=== PATIENT | female | born 1930 | race Caucasian/White ===

== ENCOUNTER → 2017-02-24 | Outpatient (CLI) | payer OTHER, MEDICARE ==
[~2017-02-24] VITALS: Ht 170.2 cm; Wt 75.8 kg
[~2017-02-24] MED LIST: APAP500 PO; COUMADIN 5 MG TA5 M1 PO; IBUPROFEN 400400 M2 PO; LEVOTHYROXIN0.088 MG PO; PROPRANOLOL 1010 MG PO
--- NOTE | ~2017-02-24 | HPC ---
[facility] [place] [address] PAIN MANAGEMENT CONSULTATION Name: SAYRA ANDREWS Room #: REG Rafia Maria M#: [id number] Admission: 02/24/17 Attend Phys: Ti Barr MD Discharge: Date of : 32 Report #: [id number] THIS REPORT FOR: //name// CC: RUBENS Barr DATE OF SERVICE: 02/24/2017 Followup visit for bilateral knee pain. The patient is in the pain clinic today for treatment of her knees. She has severe pain in both knees with osteoarthritis. She responded nicely to injections performed in September 2016 and is hopeful that we can provide similar injections for her today. She is not a surgical candidate. Pain today is bilateral knee scored as an 8/10 when weightbearing, if she is sitting her pain is quite good. She assessed her relief over the 3 months at about 50%, which is reasonable for repeat injection. MEDICATIONS: She remains on Coumadin, ibuprofen, acetaminophen and Inderal. ALLERGIES: None. PHYSICAL EXAMINATION: She is a nusrat 86-year-old pleasant, alert and oriented. She is able to move from a sitting to standing position, walks with antalgic features, complaining of pain in her knees. Tenderness around the knees is noted. There is no effusion appreciated today. IMPRESSION: Bilateral osteoarthritis with varus deformity of the right knee. No palpable effusion today, which was noticed in September. PROCEDURE: Bilateral knee injection. The patient was taken to fluoroscopic suite to perform the injections. She was placed supine. Skin was prepped with ChloraPrep broadly. Lateral approach was performed, first to the right knee. I advanced a 20-gauge needle into the knee joint on the first attempt gently advancing it subpatellar. I injected 1 mL of Omnipaque to demonstrate good spread within the joint and then injected 6 mL of 0.25% bupivacaine mixed with 40 mg of triamcinolone. Needle was removed. We then moved to the left knee. A similar procedure was performed using exactly technique. No fluid was aspirated from either joint, but I was able to confirm that we were intraarticular by injecting dye to demonstrate an arthrogram. No medications were ordered. She was better by the time she reached recovery room from the local anesthetic affect and we are hopeful that she will get an extended relief. [address] [address] PAIN MANAGEMENT CONSULTATION Name: SAYRA ANDREWS Room #: REG MURIEL Franz#: [id number] Admission: 02/24/17 Attend Phys: Ti Barr MD Discharge: Date of : 32 Report #: [id number] Follow up as needed. <ELECTRONICALLY SIGNED> By: Ti Barr MD 02/28/17 1723 1623 1720 Ti Barr MD /nt
[2017-02-24 13:05] VITALS: BP 148/70
== END | disposition home or self-care (01) ==
LOC: PAIN 11:04
DX: M17.0 Bilateral primary osteoarthritis of knee (principal); M21.161 Varus deformity, not elsewhere classified, right knee; Z88.8 Allergy status to other drugs, medicaments and biological substances; Z79.01 Long term (current) use of anticoagulants; Z79.899 Other long term (current) drug therapy; Z98.890 Other specified postprocedural states

== ENCOUNTER → 2017-09-12 | Outpatient (CLI) | payer OTHER, MEDICARE ==
[~2017-09-12] VITALS: Ht 170.2 cm; Wt 75.8 kg
--- NOTE | ~2017-09-12 | HPC ---
[facility] [place] [address] PAIN MANAGEMENT CONSULTATION Name: SAYRA ANDREWS Room #: REG MURIEL Maria M#: [id number] Admission: 09/12/17 Attend Phys: Ti Barr MD Discharge: Date of : 32 Report #: [id number] THIS REPORT FOR: //name// CC: Jack Barr DATE OF SERVICE: 09/12/2017 Followup visit for osteoarthritis, bilateral knees. The patient is here today for bilateral knee injections. She was last treated in June. She receives response from these injections each time they have been provided. She has had no complications or side effects. Last year, we provided with three injections and this will be her first injection in 2018. She describes her pain today as a 3/10, worse with standing and weightbearing. She does have a history of osteoarthritis. Her BMI is 26.2 and she is bright, sharp and alert. She is under treatment by Dr. 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 Blood pressure is 145/85, heart rate 70, respirations 14 and O2 sat 99. She has fallen in the last 3 months will be considered; therefore, a fall risk. This fall was not related to dizziness or lightheadedness, but more to a weakness and giving out of her legs. Her functional assessment tool shows a score of 16/70, which shows that she has adapted pretty well to her pain and it does not seem to affect her day-to-day activities. IMPRESSION: Osteoarthritis, bilateral knees. PROCEDURE: Bilateral knee injections with fluoroscopy. She was taken to fluoroscopic suite, placed prone, skin prepped with ChloraPrep first on the right. A 25-gauge needle was gently advanced into the joint space using a medial approach. After negative aspiration, I injected 1 mL of Omnipaque demonstrated on arthrogram. I then injected 4 mL of 0.5% bupivacaine mixed with 40 mg of triamcinolone. She tolerated the procedure well. We then prepped the left side and using the same approach anesthetized the skin and advanced the needle into the joint space. After negative aspiration, I injected once again 4 mL of 0.5% bupivacaine mixed with 40 mg of triamcinolone. She tolerated the procedure well. She was observed in the recovery room for a short time and discharged with good improvement. Follow up as needed. <ELECTRONICALLY SIGNED> By: Ti Barr MD 09/28/17 1640 1545 0454 Ti Barr MD /nt
[2017-09-12 12:45] VITALS: BP 145/85
== END | disposition home or self-care (01) ==
LOC: PAIN 07:36
DX: M17.0 Bilateral primary osteoarthritis of knee (principal)

== ENCOUNTER → 2018-01-02 | Outpatient (CLI) | payer OTHER, MEDICARE ==
[~2018-01-02] VITALS: Ht 170.2 cm; Wt 75.7 kg
--- NOTE | ~2018-01-02 | HPC ---
[facility] [place] [address] PAIN MANAGEMENT CONSULTATION Name: SAYRA ANDREWS Room #: REG MURIEL Maria M#: [id number] Admission: 01/02/18 Attend Phys: Ti Barr MD Discharge: Date of : 32 Report #: [id number] THIS REPORT FOR: //name// CC: Jack Barr DATE OF SERVICE: 01/02/2018 SUBJECTIVE: Followup visit for osteoarthritis, bilateral knees. The patient is here today for bilateral knee injections of triamcinolone. She has responded nicely to these injections and has had treatments about 3 times a year. I performed 3 injections in 2017. This will be her second set of injections. She reports that for a couple of months, she does exceptionally well with the pain reduced from her current score of 9 to almost 0. It is always worse with walking. She is comfortable with sitting. She knows that she could potentially pursue a surgical option for this, but at the age of 87, on Coumadin, she is reluctant to pursue that course. As long as this is helpful, she is going to continue getting intermittent injections. MEDICATIONS: Reviewed include acetaminophen and ibuprofen and Coumadin. I talked about the GI risk with ibuprofen and warfarin combination. It will be safer for actually to take a mild opioid. She is on levothyroxine and propranolol. ALLERGIES: None. PAST MEDICAL HISTORY: Significant for pulmonary emboli, necessitating the warfarin. 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 PHYSICAL EXAMINATION: VITAL SIGNS: Blood pressure 148/70, heart rate 78, respirations 16, 5 feet 7 inches, 167 pounds, BMI is 26. MUSCULOSKELETAL: She has bilateral localized tenderness. Right is worse than left. There is lateral tenderness noted in the right knee and may be a small effusion noted. There is no crepitus with flexion or extension. Standing, weightbearing causes pain and she has antalgic gait related to both knee causing pain that radiates down into the anterior part of her lower leg. She denies any back or leg pain. [facility] [address] [place] [address] PAIN MANAGEMENT CONSULTATION Name: SAYRA ANDREWS [id number] Admission: 01/02/18 Attend Phys: Ti Barr MD Discharge: Date of : 32 Report #: [id number] IMPRESSION: Osteoarthritis, bilateral knees. PLAN: Bilateral knee injections under fluoroscopic guidance. She was placed in the supine position. Skin prepped with ChloraPrep. I gently advanced a 25-gauge needle into the left knee joint with fluoroscopic guidance. I did not use omnipaque. Today, I have used it in the past. Position looked excellent. After negative aspiration, I gently injected without restriction. A total of 4 mL of 0.5% bupivacaine mixed with 40 mg of triamcinolone. The skin was then prepped on the right and similar injection was performed with the same technique. She tolerated the procedures well. There were no complications. She was taken to recovery room and observed for a short time and discharged with improvement. Pain score noted as she walked out of the recovery room at 0. Followup visit planned for repeat injections in the future. <ELECTRONICALLY SIGNED> By: Ti Barr MD 01/30/18 1230 1309 2121 Ti Barr MD /nt
[2018-01-02 10:26] VITALS: BP 154/74
== END | disposition home or self-care (01) ==
LOC: PAIN 06:53
DX: M17.0 Bilateral primary osteoarthritis of knee (principal); G89.29 Other chronic pain; Z86.711 Personal history of pulmonary embolism; Z79.01 Long term (current) use of anticoagulants; Z79.899 Other long term (current) drug therapy; Z98.890 Other specified postprocedural states

== ENCOUNTER → 2018-03-27 | Outpatient (CLI) | payer OTHER, MEDICARE ==
[~2018-03-27] VITALS: Ht 170.2 cm; Wt 75.7 kg
--- NOTE | ~2018-03-27 | HPC ---
[facility] [place] [address] PAIN MANAGEMENT CONSULTATION Name: SAYRA ANDREWS Room #: REG MURIEL Chandler.#: [id number] Admission: 03/27/18 Attend Phys: Ti Barr MD Discharge: Date of : 32 Report #: [id number] THIS REPORT FOR: //name// CC: Jack Barr DATE OF SERVICE: 03/27/2018 Followup visit for bilateral osteoarthritis of the knee. HISTORY OF PRESENT ILLNESS: The patient is here today for bilateral injections. She has responded nicely to these injections with sustained relief over 2-3 months in the past. She is on Coumadin. We have allowed her to remain on it. I feel it safer than taking her off for this peripheral injection performed with a 25-gauge needle. She reports that her pain intensity is up at 6-7/10, chronic and aching, worse with weightbearing. MEDICATIONS: Include acetaminophen, ibuprofen, warfarin, Inderal and levothyroxine. Once again, she was warned about the risk of taking ibuprofen with Coumadin. PQRS REVIEW: She is pleasant, alert and oriented, without signs of overmedication. She denies use of tobacco or alcohol. She is not a fall risk. She is under treatment for hypertension and is on Coumadin. She takes no opioid medication. Her blood pressure 150/71, heart rate 64, respirations 20, O2 sat 96. She is 5 feet 7 inches with a BMI of 26. She has tenderness of both knees with slight effusion noted on the right. Drawer test is negative. She has an antalgic gait, complaining of pain that radiates into the anterior lower leg bilaterally with tenderness along the tibia. IMPRESSION: Osteoarthritis of the knees bilaterally. She has responded nicely to injections in the past. PROCEDURE: Bilateral knee injection under fluoroscopic guidance. She was taken to fluoroscopic suite, placed prone, skin prepped with ChloraPrep. Skin anesthetized first on the right. A 25-gauge needle was gently advanced into the knee joint under fluoroscopic guidance. I used 0.25 mL of Omnipaque. Good spread of dye was observed within the joint space, it was followed by 3 mL of 0.5% bupivacaine mixed with 40 mg triamcinolone. The C-arm was then moved to the opposite side and the second knee was injected using the same technique. [address] [address] PAIN MANAGEMENT CONSULTATION Name: SAYRA ANDREWS Room #: REG CLI [facility]#: [id number] Admission: 03/27/18 Attend Phys: Ti Barr MD Discharge: Date of : 32 Report #: [id number] She tolerated the procedure well. She was observed for a short time and discharged with a pain score of 0. Followup as needed. By: [id number] Ti Barr MD /franchesca
[2018-03-27 10:46] VITALS: BP 150/71
== END | disposition home or self-care (01) ==
LOC: PAIN 07:00
DX: M17.0 Bilateral primary osteoarthritis of knee (principal); G89.29 Other chronic pain; I10 Essential (primary) hypertension; Z98.890 Other specified postprocedural states; Z79.01 Long term (current) use of anticoagulants; Z79.899 Other long term (current) drug therapy; Z88.6 Allergy status to analgesic agent; Z88.8 Allergy status to other drugs, medicaments and biological substances

== ENCOUNTER → 2018-06-26 | Outpatient (CLI) | payer OTHER, MEDICARE ==
[~2018-06-26] VITALS: Ht 170.2 cm; Wt 75.7 kg
--- NOTE | ~2018-06-26 | HPC ---
[facility] [place] [address] [place] [address] PAIN MANAGEMENT CONSULTATION Name: SAYRA ANDREWS Room #: REG MURIEL Maria M#: [id number] Admission: 06/26/18 Attend Phys: Ti Barr MD Discharge: Date of : 32 Report #: [id number] THIS REPORT FOR: //name// CC: Jack Barr DATE OF SERVICE: 06/26/2018 Followup visit for osteoarthritis. The patient has bilateral knee pain and has responded nicely to intermittent cortisone injections. The pain today is worsening and is so severe at night that it affects her sleep. 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 The knee pain is severe when she is walking as well. After injection, she gets an easy 2 months, sometimes 3 months of pain relief. It has been 3 months since we last injected. MEDICATIONS: Reviewed and reconciled. She is on Coumadin. She takes aspirin for pain. She is not on an opioid agreement. She does not drink alcohol. She is a fall risk and was cautioned. She does not use a support device. It is her knees that cause problems that can potentially give out on her. She denies use of tobacco. PHYSICAL EXAMINATION: VITAL SIGNS: Blood pressure 153/78, heart rate 79 and respirations 18. BMI is 26.1. GENERAL: She is bright and alert. EXTREMITIES: She has tenderness bilaterally of the knees. She has some crepitus with extension past 90 degrees. There is no palpable effusion. IMPRESSION: Osteoarthritis, bilateral knees. PROCEDURE: Bilateral knee injection under fluoroscopic guidance. DESCRIPTION OF PROCEDURE: She was taken to the fluoroscopic suite and placed prone. Skin prepped with ChloraPrep. Skin anesthetized first on the right. Using a lateral approach, the needle was advanced gently into the joint space and 0.25 mL of Omnipaque was enough to inject and demonstrate an arthrogram. It was followed by 4 mL of 0.5% lidocaine and 40 mg of triamcinolone. Needle was removed. Same procedure was performed on the left. She tolerated the injections well. There were no complications. She was given no prescriptions. She will continue [address] [address] PAIN MANAGEMENT CONSULTATION Name: SAYRA ANDREWS Cole Room #: REG [facility].#: [id number] Admission: 06/26/18 Attend Phys: Ti Barr MD Discharge: Date of : 32 Report #: [id number] on acetaminophen with occasional use of ibuprofen 400 mg. Precautions were provided regarding the side effects of the nonsteroidal anti-inflammatory drug. By: [id number] Ti Barr MD /nt
[2018-06-26 09:38] VITALS: BP 153/78
== END | disposition home or self-care (01) ==
LOC: PAIN 00:15
DX: M17.0 Bilateral primary osteoarthritis of knee (principal); Z79.01 Long term (current) use of anticoagulants; Z79.82 Long term (current) use of aspirin; Z79.899 Other long term (current) drug therapy; Z88.8 Allergy status to other drugs, medicaments and biological substances

== ENCOUNTER → 2018-09-18 | Outpatient (CLI) | payer OTHER, MEDICARE ==
[~2018-09-18] VITALS: Ht 170.2 cm; Wt 75.8 kg
[2018-09-18 13:30] VITALS: BP 155/84
--- NOTE | 2018-09-18 13:49 | NUR ---
Pain Clinic Assessment: 1. History of Osteoarthritis: NO History of Rheumatoid Arthritis: NO 2. Height: 5 ft. 7 in. 170.2 cm. Weight: 167.2 lb. oz. 75.841 kg. Patient's BMI: 26.2 3. Vital Signs: BP: 155/84 Pulse: 70 Resp: 16 Temp: 02 Sat: 99 ECG Mon: 4. Pain Intensity: 7 NOC 6 AVG 5. Fall Risk: Dizziness: N Needs help standing or walking: N Fallen in the last 3 months: N Fall risk comments: 6. Patient on Blood Thinner: Warfarin (Coumadin) 7. History of Hypertension: Y 8. Opioid Therapy greater than 6 weeks: N Opiate Contract Signed: 9. Risk Assessment Tool Provided: LOW RISK 0/3 10. Functional Assessment Tool: 11. Recreational Drug Use: Never Drug Type: Tobacco Use: Never Smoker Tobacco Type: Amount or Packs/day: How Many Years: Alcohol Use: Yes Frequency: Quant:
--- NOTE | 2018-10-02 07:40 | HPC ---
[facility] [place] [address] [address] PAIN MANAGEMENT CONSULTATION Name: SAYRA ANDREWS Room #: REG MURIEL Maria M#: [id number] Admission: 09/18/18 ������������������ Attend Phys: Ti Barr MD Discharge: ������������������ Date of : 32 Report #: [id number] THIS REPORT FOR: //name// CC: Jack Barr DATE OF SERVICE: 09/18/2018 Followup visit for osteoarthritis of the knees. The patient is here today, would like another injection in each knee. I last gave her injections in June and they were helpful for several weeks providing significant pain relief. She complains of pain bilaterally in the knees. Pain is severe with standing, weightbearing, but it is worse at night. She had a lot of relief with the last injections, particularly at night that helped her sleep. She needs to sleep to help be bright and sharp during the day to help care for her who has advancing early onset dementia. He also is up at night. PHYSICAL EXAMINATION: She is 5 feet 7 inches, 167 pounds for a BMI of 26.2. Her blood pressure is 155/84, heart rate 70. Pain score of 7. She moves easily from a sitting to standing position and is not a fall risk. She has tenderness with no effusion noted on either knee. She has crepitus with flexion. The knee is stable. PAST MEDICAL HISTORY: She is on Coumadin and under treatment by Dr. Broussard for hypertension. She does not take opioid medications from our clinic. IMPRESSION: Bilateral osteoarthritis involving the knees. PROCEDURE: Bilateral knee injection with bupivacaine and triamcinolone. DESCRIPTION OF PROCEDURE: She was taken to fluoroscopic suite and placed in supine position. Skin was prepped with ChloraPrep. We began first on the right. Using lateral approach, I gently advanced a 25-gauge needle into the knee joint and quarter omnipaque was injected to demonstrate an arthrogram. I then injected 4 mL of 0.5% bupivacaine mixed with 40 mg of triamcinolone. We then injected the left knee using a left paramedial approach. Skin anesthetized and a 25-gauge needle advanced in the knee joint. Omnipaque demonstrated once again an arthrogram. I injected 4 mL of 0.5% bupivacaine mixed with 40 mg of triamcinolone on the right. She tolerated the injections [address] [address] PAIN MANAGEMENT CONSULTATION Name: SAYRA ANDREWS Room #: REG CL Maria M#: [id number] Admission: 09/18/18 ������������������ Attend Phys: Ti Barr MD Discharge: ������������������ Date of : 32 Report #: [id number] well. She was observed for short time and discharged with a pain score 0. Follow up as needed. ��������������������������������������������� <ELECTRONICALLY SIGNED> ���������������������������������������� By: Ti Barr MD ��������������������������������������������� 10/02/18 0740 1547 0019 Ti Barr MD /franchesca
== END | disposition home or self-care (01) ==
LOC: PAIN 07:12
DX: M17.0 Bilateral primary osteoarthritis of knee (principal); G89.29 Other chronic pain; I10 Essential (primary) hypertension; Z88.8 Allergy status to other drugs, medicaments and biological substances; Z79.01 Long term (current) use of anticoagulants; Z79.899 Other long term (current) drug therapy; Z98.890 Other specified postprocedural states

== ENCOUNTER → 2018-12-11 | Outpatient (CLI) | payer OTHER, MEDICARE ==
[~2018-12-11] VITALS: Ht 170.2 cm; Wt 75.2 kg
[~2018-12-11] MED LIST changes: -APAP500 PO; +TRAMADOL HCL50 MG PO; +TYLENOL EXTRA500 MG PO
[2018-12-11 10:28] VITALS: BP 168/90
--- NOTE | 2019-01-01 18:12 | HPC ---
[facility] [place] [address] PAIN MANAGEMENT CONSULTATION Name: SAYRA ANDREWS Room #: REG MURIEL Maria M#: [id number] Admission: 12/11/18 ������������������ Attend Phys: Ti Barr MD Discharge: ������������������ Date of : 32 Report #: [id number] THIS REPORT FOR: //name// CC: Jack Barr DATE OF SERVICE: 12/11/2018 Followup visit for bilateral knee pain with osteoarthritis. The patient is in the clinic today for further consultation regarding chronic pain and for an injection of each knee. These provide temporary, but significant relief. I spent 20 minutes in consultation today. She is the primary caregiver for her , Mikel, who is a patient of our clinic as well. Mikel is aging and is showing more signs of senility and dementia. She is worried that he is up at night and she has to follow him to the bathroom. This is affecting her sleep and it seems to be more bothersome now than it was even in September when we discussed it. She is the stability of the family. She also has children for him. She says she provides emotional support. They expect her to be present to take care of their father and she feels strongly that this is her responsibility. In addition, she laments the fact that there are very poor support services for her and her in the current medical system. He is unable to stay in a unit other than a Medicaid bed, which reimburses so poorly that there are very few places where she feels comfortable having him. She will continue to provide care for him in the home as long as she can. The pain in her knees is significant and is one of her limiting factors. We have discussed other treatment options, but she is currently because of social and other factors not a candidate for ____ and will continue receiving intermittent injections as long as we can provide them safely to allow her to continue her important work. PHYSICAL EXAMINATION: She is a bright, pleasant stoic 88-year-old female alert and oriented. Her blood pressure is 168/90 and heart rate is 60. She moves from sitting to standing position. Her gait is antalgic. She has a slight varus deformity noted of each knee. There is tenderness on each knee without effusion. Mild crepitus is present. IMPRESSION: Bilateral osteoarthritis involving knees. PLAN AND PROCEDURE: Bilateral knee injection with bupivacaine and triamcinolone under fluoroscopic guidance. [address] [address] PAIN MANAGEMENT CONSULTATION Name: SAYRA ANDREWS Room #: REG CLI Maria M#: [id number] Admission: 12/11/18 ������������������ Attend Phys: Ti Barr MD Discharge: ������������������ Date of : 32 Report #: [id number] She was taken to the fluoroscopic suite and placed supine. Her skin was prepped with ChloraPrep. We began first on the left. Skin was anesthetized with 27-gauge needle and identified the entry into the knee joint. I gently advanced a 25-gauge needle into the knee joint and after negative aspiration, I injected 4 mL of 0.5% bupivacaine. This was mixed with 40 mg of triamcinolone. She tolerated the procedure well. We then moved to the right and performed a mirror image injection. She tolerated the injections well. Her pain score 2 in the recovery room. She was discharged in good condition with a followup on an as needed basis. No medications were ordered. Total time spent in consultation with the patient regarding chronic pain and family issues as well as palliative care issues for her 20-25 minutes and injection. ��������������������������������������������� <ELECTRONICALLY SIGNED> ���������������������������������������� By: Ti Barr MD ��������������������������������������������� 01/01/19 1812 1747 0416 Ti Barr MD /nt
== END | disposition home or self-care (01) ==
LOC: PAIN 06:41
DX: M17.0 Bilateral primary osteoarthritis of knee (principal); G89.29 Other chronic pain; Z79.01 Long term (current) use of anticoagulants; Z88.6 Allergy status to analgesic agent; Z88.8 Allergy status to other drugs, medicaments and biological substances; Z79.899 Other long term (current) drug therapy

== ENCOUNTER → 2019-03-01 | Outpatient (CLI) | payer OTHER, MEDICARE ==
[~2019-03-01] VITALS: Ht 170.2 cm; Wt 71.7 kg
--- NOTE | ~2019-03-01 | HPC ---
[facility] [place] [address] PAIN MANAGEMENT CONSULTATION Name: SAYRA ANDREWS Room #: REG MURIEL Maria M#: [id number] Admission: 03/01/19 ������������������ Attend Phys: Ti Barr MD Discharge: ������������������ Date of : 32 Report #: [id number] THIS REPORT FOR: //name// CC: Jack Barr DATE OF SERVICE: 03/01/2019 Followup visit for bilateral knee pain with osteoarthritis. The patient is here today for bilateral knee injections. She again is hopeful that we can provide relief to allow her to perform her day-to-day activities and tasks. 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 It has been about 2-1/2 months since those injections. MEDICATIONS: Coumadin, levothyroxine, propranolol, Tylenol, ibuprofen 400 mg b.i.d. ALLERGIES: None. PQRS REVIEW: Positive for osteoarthritis, particularly involving the knees. Her BMI is 24. Her blood pressure 179/79, heart rate 71. Pain intensity is 7/10. She is not a fall risk nor has she fallen in the last 3 months. She is on Coumadin, which was not discontinued today and I have agreed to perform the injections while on it using a 25-gauge needle. She has a history of hypertension. Dr. Broussard prescribes all her medications and they were reviewed and reconciled. She is not on an opioid agreement because she takes no opioid medication and prefers to avoid them. She denies use of tobacco, drinks alcohol every so often in the social setting. PHYSICAL EXAMINATION: Vital signs are as noted above. She is pleasant, alert and oriented. She shows no signs of senility or dementia. She moves easily from sitting to standing position, but her gait is markedly antalgic. She has a varus deformity noted bilaterally. Tenderness is noted. Pain is worse laterally. There is no effusion. Mild crepitus once again present in the exam. IMPRESSION: Osteoarthritis, bilateral knees. PROCEDURE: Bilateral knee injection under fluoroscopic guidance. PROCEDURE: She was taken to the fluoroscopic suite for the procedure, placed supine, skin prepped with ChloraPrep first on the left knee. 25-gauge needle was gently advanced into the knee joint. After negative aspiration, I gently [address] [address] PAIN MANAGEMENT CONSULTATION Name: SAYRA ANDREWS Room #: REG MURIEL Franz#: [id number] Admission: 03/01/19 ������������������ Attend Phys: Ti Barr MD Discharge: ������������������ Date of : 32 Report #: [id number] injected Omnipaque to demonstrate an arthrogram followed by 3 mL of 0.5% bupivacaine mixed with 40 mg of triamcinolone. She tolerated the procedure well. There were no complications. I then repeated the injection on the left using the same technique. Again, she tolerated the procedure well without discomfort and there were no complications. She was observed in the recovery room for a short time and discharged to be seen on an as needed basis. Her pain score was 0 in recovery room. ��������������������������������������������� ���������������������������������������� By: ��������������������������������������������� [id number] Ti Barr MD /nt
[2019-03-01 13:06] VITALS: BP 149/79
--- NOTE | 2019-03-01 13:16 | NUR ---
Pain Clinic Assessment: 1. History of Osteoarthritis: NO History of Rheumatoid Arthritis: NO 2. Height: 5 ft. 7 in. 170.2 cm. Weight: 158.0 lb. oz. 71.668 kg. Patient's BMI: 24.7 3. Vital Signs: BP: 149/79 Pulse: 71 Resp: 18 Temp: 02 Sat: 98 ECG Mon: 4. Pain Intensity: 7 5. Fall Risk: Dizziness: N Needs help standing or walking: N Fallen in the last 3 months: N Fall risk comments: 6. Patient on Blood Thinner: Warfarin (Coumadin) 7. History of Hypertension: Y 8. Opioid Therapy greater than 6 weeks: N Opiate Contract Signed: 9. Risk Assessment Tool Provided: LOW RISK 0/3 10. Functional Assessment Tool: 11. Recreational Drug Use: Never Drug Type: Tobacco Use: Never Smoker Tobacco Type: Amount or Packs/day: How Many Years: Alcohol Use: Yes Frequency: Weekly Quant:
== END | disposition home or self-care (01) ==
LOC: PAIN 06:46
DX: M17.0 Bilateral primary osteoarthritis of knee (principal); G89.29 Other chronic pain; I10 Essential (primary) hypertension; Z79.01 Long term (current) use of anticoagulants; Z79.899 Other long term (current) drug therapy; Z88.8 Allergy status to other drugs, medicaments and biological substances; Z98.890 Other specified postprocedural states

== ENCOUNTER → 2019-05-31 | Outpatient (CLI) | payer OTHER, MEDICARE ==
[~2019-05-31] VITALS: Ht 170.2 cm; Wt 70.3 kg
--- NOTE | ~2019-05-31 | HPC ---
[facility] [place] [address] PAIN MANAGEMENT CONSULTATION Name: SAYRA ANDREWS Room #: REG MURIEL Maria M#: [id number] Admission: 05/31/19 Attend Phys: Ti Barr MD Discharge: Date of : 32 Report #: [id number] THIS REPORT FOR: //name// CC: RUBENS Barr DATE OF SERVICE: 05/31/2019 Followup visit for bilateral knee pain with severe osteoarthritis. The patient returns to the pain clinic today for bilateral knee injections. She is not deemed a surgical candidate and is generally comfortable for a period of months following her knee injection. Her last injections were on 03/01/2019. She has pain mostly with standing and weightbearing. She takes only a small amount of tramadol 50 mg as needed. She does not necessarily like to take pain medication. She will use extra strength Tylenol as well. PQRS REVIEW: 1. History of osteoarthritis of knees. 2. BMI 24.7. 3. Vital signs: Blood pressure 149/79, heart rate 71, respirations 18, O2 sat 98. 4. Pain intensity is 7. 5. No falls. 6. She is on Coumadin. 7. History of hypertension and is under treatment by Dr. Broussard. 8. She is not on an opioid agreement. 9. She completed an opioid risk tool with a score of 0. 10. Functional assessment score of 16 suggesting minimal impact of pain on her day-to-day activities. 11. She denies tobacco, drinks alcohol in social setting on a routine basis. PHYSICAL EXAMINATION: Vital signs as noted. Examination of the knees reveals tenderness bilaterally without effusion. She has good range of motion with mild crepitus. IMPRESSION: Osteoarthritis, bilateral knees. PROCEDURE: Bilateral knee injections with triamcinolone and bupivacaine under fluoroscopic guidance. She was taken to fluoroscopic suite, placed supine, skin prepped with ChloraPrep. We began on the right. A 27-gauge needle was gently advanced subpatellar into the knee joint. Lateral approach was utilized. After negative aspiration, I injected 0.5 mL of Omnipaque, which demonstrated an arthrogram, [facility] [address] [place] [address] PAIN MANAGEMENT CONSULTATION Name: SAYRA ANDREWS Room #: REG [facility]#: [id number] Admission: 05/31/19 Attend Phys: Ti Barr MD Discharge: Date of : 32 Report #: [id number] was followed then by 3 mL of 0.5% bupivacaine mixed with 40 mg of triamcinolone. The patient was then allowed to reposition and the procedure was repeated on the left. There were no complications. She tolerated the procedure well and was observed for a short time in recovery room air, pain score was 0 at discharge. Followup visit planned in the pain clinic on an as needed basis. No medications were ordered on this visit. By: [id number] Ti Barr MD /franchesca
[2019-05-31 10:52] VITALS: BP 139/85
--- NOTE | 2019-05-31 11:12 | NUR ---
Pain Clinic Assessment: 1. History of Osteoarthritis: NO History of Rheumatoid Arthritis: NO 2. Height: 5 ft. 7 in. 170.2 cm. Weight: 155.0 lb. oz. 70.308 kg. Patient's BMI: 24.3 3. Vital Signs: BP: 139/85 Pulse: 63 Resp: 16 Temp: 02 Sat: 100 ECG Mon: 4. Pain Intensity: 7 5. Fall Risk: Dizziness: N Needs help standing or walking: N Fallen in the last 3 months: Y Fall risk comments: 6. Patient on Blood Thinner: Warfarin (Coumadin) 7. History of Hypertension: Y 8. Opioid Therapy greater than 6 weeks: N Opiate Contract Signed: 9. Risk Assessment Tool Provided: LOW RISK 0/3 10. Functional Assessment Tool: 11. Recreational Drug Use: Never Drug Type: Tobacco Use: Never Smoker Tobacco Type: Amount or Packs/day: How Many Years: Alcohol Use: Yes Frequency: Quant:
== END | disposition home or self-care (01) ==
LOC: PAIN 07:04
DX: M25.561 Pain in right knee (principal); M25.562 Pain in left knee; G89.29 Other chronic pain; M17.0 Bilateral primary osteoarthritis of knee; I10 Essential (primary) hypertension; Z79.01 Long term (current) use of anticoagulants; Z88.8 Allergy status to other drugs, medicaments and biological substances; Z79.899 Other long term (current) drug therapy; Z98.890 Other specified postprocedural states

== ENCOUNTER → 2019-08-30 | Outpatient (CLI) | payer OTHER, MEDICARE ==
[~2019-08-30] VITALS: Ht 170.2 cm; Wt 70.8 kg
--- NOTE | ~2019-08-30 | HPC ---
[facility] [place] [address] PAIN MANAGEMENT CONSULTATION Name: SAYRA ANDREWS [facility] [id number] Admission: 08/30/19 Attend Phys: Ti Barr MD Discharge: Date of : 32 Report #: [id number] THIS REPORT FOR: //name// cc: Jack Broussard MD, Rene P. MD ~ THIS REPORT FOR: //name// CC: Jack Barr DATE OF SERVICE: 08/30/2019 Followup visit for chronic knee pain, osteoarthritis. The patient is here today for repeat knee injections. I performed these roughly at 3-month intervals and she gets good relief. Duration of response is usually about 2-3 months. She has received both subpatellar bursa injections as well as intra-articular injections and both showing positive benefit. She has some tramadol available, but does not routinely use it. She is extremely sharp at 89 taking care of her 92-year-old . She is independent in almost all of her activities of daily living. She is always quite mentally sharp and shows no signs of cognitive decline. PQRS is negative. There is positive for osteoarthritis of the knees bilaterally. Her BMI is 24.4. She tries to remain active and fit. Blood pressure 136/84, heart rate 65, respirations 14, O2 sat 98. Pain intensity 8-9/10. She is not typically considered a fall risk, but did fall over her dog tripping over a threshold when she had both arms full of groceries. She landed forward on her knees causing some bruising secondary to her chronic use of warfarin. She is also taking antihypertensive medication provided by Dr. Broussard. Inderal 10 mg once daily is sufficient. She completed an opioid risk tool scoring 0 and is not currently receiving opioids from our clinic. She is remarkably unimpeded by her pain scoring her functional assessment tool at 16/70, a very low impact. She denies use of recreational drugs, tobacco and enjoys alcohol on occasion with her family. PHYSICAL EXAMINATION: Bright and sharp, alert, oriented. Vital signs as noted above. Examination of the knees reveals bilateral tenderness. Tenderness is really over the patella, lateral and medial. She has pain with flexion and extension. There is no swelling, redness, or inflammation. There is some bruising on her left knee from a recent fall. IMPRESSION: Osteoarthritis, bilateral knees. [address] [address] PAIN MANAGEMENT CONSULTATION Name: SAYRA ANDREWS [facility] [id number] Admission: 08/30/19 Attend Phys: Ti Barr MD Discharge: Date of : 32 Report #: [id number] PROCEDURE: Fluoroscopically guided knee injections. After informed consent, she was taken to fluoroscopic suite where she was placed in supine position with a pillow under the knees. Skin was prepped with ChloraPrep. A 27-gauge needle was advanced gently using a medial approach into the knee joint, first on the left and then the right. I injected 0.25 mL of Omnipaque through each needle to confirm placement. I did inject the subpatellar bursa on the left and I injected intraarticular on the right. We will assess the injections from each in followup visit. I injected a total of 3 mL of 0.5% bupivacaine mixed with 40 mg of triamcinolone into each knee. She has tolerated this quite well in the past with no complications. She did well and was taken to recovery room and observed for about 30 minutes and discharged. Pain was reduced by about 75% per the pain score. Follow up as needed. By: 1202 50 Ti Barr MD /nt
[2019-08-30 10:23] VITALS: BP 136/84
--- NOTE | 2019-08-30 10:24 | NUR ---
Pain Clinic Assessment: 1. History of Osteoarthritis: NO History of Rheumatoid Arthritis: NO 2. Height: 5 ft. 7 in. 170.2 cm. Weight: 156.0 lb. oz. 70.761 kg. Patient's BMI: 24.4 3. Vital Signs: BP: 136/84 Pulse: 65 Resp: 14 Temp: 02 Sat: 98 ECG Mon: 4. Pain Intensity: 8-9 5. Fall Risk: Dizziness: N Needs help standing or walking: N Fallen in the last 3 months: Y Fall risk comments: tripped over threshhold,she had both arms full of groceries fell forward landing on both knees 6. Patient on Blood Thinner: Warfarin (Coumadin) 7. History of Hypertension: Y 8. Opioid Therapy greater than 6 weeks: N Opiate Contract Signed: 9. Risk Assessment Tool Provided: LOW RISK 0/3 10. Functional Assessment Tool: 11. Recreational Drug Use: Never Drug Type: Tobacco Use: Never Smoker Tobacco Type: Amount or Packs/day: How Many Years: Alcohol Use: Yes Frequency: Quant:
== END | disposition home or self-care (01) ==
LOC: PAIN 06:50
DX: M17.0 Bilateral primary osteoarthritis of knee (principal); G89.29 Other chronic pain; Z98.890 Other specified postprocedural states; Z79.899 Other long term (current) drug therapy; Z79.01 Long term (current) use of anticoagulants; Z88.8 Allergy status to other drugs, medicaments and biological substances

== ENCOUNTER → 2020-01-17 | Outpatient (CLI) | payer OTHER, MEDICARE ==
[~2020-01-17] VITALS: Ht 170.2 cm; Wt 68.9 kg
[2020-01-17 12:29] VITALS: BP 181/113
--- NOTE | 2020-01-17 12:45 | NUR ---
Pain Clinic Assessment: 1. History of Osteoarthritis: KNEES BACK HANDS History of Rheumatoid Arthritis: Not Applicable 2. Height: 5 ft. 7 in. 170.2 cm. Weight: 151.8 lb. oz. 68.856 kg. Patient's BMI: 23.8 3. Vital Signs: BP: 181/113 Pulse: 69 Resp: 18 Temp: 02 Sat: 96 ECG Mon: 4. Pain Intensity: 3-4 5. Fall Risk: Dizziness: N Needs help standing or walking: N Fallen in the last 3 months: N Fall risk comments: tripped over threshhold,she had both arms full of groceries fell forward landing on both knees 6. Patient on Blood Thinner: Warfarin (Coumadin) 7. History of Hypertension: Y 8. Opioid Therapy greater than 6 weeks: N Opiate Contract Signed: 9. Risk Assessment Tool Provided: LOW RISK 0/3 10. Functional Assessment Tool: 11. Recreational Drug Use: Never Drug Type: Tobacco Use: Never Smoker Tobacco Type: Amount or Packs/day: How Many Years: Alcohol Use: Yes Frequency: Daily Quant: 1
--- NOTE | 2020-01-25 15:51 | HPC ---
[facility] [place] [address] PAIN MANAGEMENT CONSULTATION Name: SAYRA ANDREWS Room #: REG MURIEL LarryChandler#: [id number] Admission: 01/17/20 Attend Phys: Ti Barr MD Discharge: Date of : 32 Report #: [id number] THIS REPORT FOR: cc: Jack Broussard MD, Rene P. MD Morgan,Ti West MD ~ CC: Jack Barr DATE OF SERVICE: 01/17/2020 REASON FOR VISIT: Severe knee pain. SUBJECTIVE: The patient has severe valgus deformity of both knees. Pain is severe, and interferes with her standing and walking. She is not a surgical candidate. She has discussed treatment with Dr. Broussard. I have been providing intermittent injections, which have provided temporary relief; her last injections were in August. Typically, pain relief lasts about 3 or 4 months. She is here today for repeat injections. PQRS: She has a history of osteoarthritis. Other joints are involved, but mostly the knee. Her BMI is 23.8, slightly down. Blood pressure 181/113, heart rate 69. She should follow with Dr. Broussard and it was discussed. O2 sat is 96, pain intensity 3/10 to 4/10. She has good stability despite her changes and has not fallen. She is on blood thinner. She is also on treatment for hypertension, but given her numbers today, she should have those medications reviewed by Dr. Broussard. She does not take opioids. She denies use of tobacco, occasionally has an alcoholic beverage in a social setting. PHYSICAL EXAMINATION: Pleasant, sharp 89-year-old. She moves independently from a sitting to standing position. Her gait is antalgic; she shuffles. Marked genu valgus is noted bilaterally and she appears knocked kneed. She has tenderness bilaterally, both medial and lateral. IMPRESSION: Osteoarthritis with genu valgus, bilateral. PROCEDURE: Bilateral knee injection under fluoroscopic guidance. After informed consent, she was taken to the fluoroscopic suite and placed supine. Pillows were placed under her knee and they were flexed approximately 20 degrees. Skin was anesthetized and a 25-gauge needle gently advanced in the subpatellar region into the knee joint. I injected a small amount of Omnipaque through each needle and confirming an arthrogram. Each needle was injected then with 40 mg of triamcinolone and 3 mL of 0.5% bupivacaine. She tolerated the procedure well. Pain score is 0 at discharge. [address] [address] PAIN MANAGEMENT CONSULTATION Name: SAYRA ANDREWS Room #: REG [facility]#: [id number] Admission: 01/17/20 Attend Phys: iT Barr MD Discharge: Date of : 32 Report #: [id number] Followup visit as needed. No medications ordered. <ELECTRONICALLY SIGNED> By: Ti Barr MD 01/25/20 1551 1734 08 Ti Barr MD /franchesca
== END | disposition home or self-care (01) ==
LOC: PAIN 08:17
PROVIDERS: ATTEND Anesthesiology Pain Medicine
DX: M17.0 Bilateral primary osteoarthritis of knee (principal); M25.561 Pain in right knee; M25.562 Pain in left knee; I10 Essential (primary) hypertension; M19.90 Unspecified osteoarthritis, unspecified site; Z98.890 Other specified postprocedural states; Z79.899 Other long term (current) drug therapy; Z79.01 Long term (current) use of anticoagulants; Z88.8 Allergy status to other drugs, medicaments and biological substances

== ENCOUNTER → 2020-05-12 | Outpatient (CLI) | payer OTHER, MEDICARE ==
[~2020-05-12] VITALS: Ht 170.2 cm; Wt 68.4 kg
--- NOTE | ~2020-05-12 | HPC ---
[facility] [address] [address] [place] [address] PAIN MANAGEMENT CONSULTATION Name: SAYRA ANDREWS Room #: REG MURIEL Maria M#: [id number] Admission: 05/12/20 Attend Phys: Ti Barr MD Discharge: Date of : 32 Report #: [id number] CC: Jack Barr DATE OF SERVICE: 05/12/2020 Followup visit for chronic pain. I have been seeing the patient for a number of years. She is here today complaining of pain that radiates down both legs. This is a bit different than her usual arthritic complaints. She has responded okay to injections of the knees, but the temporary response is usually around 2-3 months. Today, she sounds more like she is having radicular symptoms. It is worse with standing and weightbearing. At times, she has to just get off of her legs when she is standing. The pain radiates in an L4-L5 distribution. She also has some S1 distribution pain. We do not have an MRI. She is on Coumadin, but discontinued it for 5 days in anticipation of an injection today. She was hopeful that we can provide some relief and recognizing that her pain is different than her usual just straightforward knee arthritis. PQRS: Positive for osteoarthritis of hands, back, and knees. Her BMI is 23.6, blood pressure 149/84, heart rate 71, respirations 16, O2 sat 98, pain intensity 3-4/10. She needs some help standing and walking. She is able to push a grocery cart fairly comfortably as long as she is in flexion, which would suggest some degree of spondylosis as well as perhaps stenosis as well. She is on Coumadin, INR 1.0, discontinuing 5 days ago. History of hypertension, treated by Dr. Broussard, takes no opioids. She occasionally has an alcoholic beverage. IMPRESSION: Chronic intractable back pain and osteoarthritis. Lumbar radiculopathy, bilateral consistent with aging, spinal stenosis and radiculopathy. PROCEDURE: Epidural injection L4-L5 under fluoroscopic guidance. PROCEDURE NOTE: After both written and informed consent to include risk of spinal cord damage, increased pain, weakness and dural puncture, the patient was taken to the fluoroscopy suite, placed in the prone position. After sterile prep and drape, a skin wheal with lidocaine was raised. A 22-gauge epidural Tuohy needle was inserted in the midline at L4-L5 with good loss to resistance. Negative aspiration for cerebrospinal fluid or blood was noted. Then 1 mL of Omnipaque under biplanar fluoroscopy showed good spread within the epidural space. This was followed with 80 mg of triamcinolone plus 1 mL of 1.5% preservative-free Xylocaine, 0.5 mL Xylocaine was then injected to flush the needle; it was removed. The patient was monitored for an appropriate period of time and discharged in good and stable condition. By: 1500 1610 iT Barr MD /nt
[2020-05-12 13:31] VITALS: BP 149/84
--- NOTE | 2020-05-12 13:57 | NUR ---
Pain Clinic Assessment: 1. History of Osteoarthritis: KNEES BACK HANDS History of Rheumatoid Arthritis: Not Applicable 2. Height: 5 ft. 7 in. 170.2 cm. Weight: 150.8 lb. oz. 68.402 kg. Patient's BMI: 23.6 3. Vital Signs: BP: 149/84 Pulse: 71 Resp: 16 Temp: 02 Sat: 98 ECG Mon: 4. Pain Intensity: 3-4 5. Fall Risk: Dizziness: N Needs help standing or walking: Y Fallen in the last 3 months: N Fall risk comments: tripped over threshhold,she had both arms full of groceries fell forward landing on both knees 6. Patient on Blood Thinner: Warfarin (Coumadin) 7. History of Hypertension: Y 8. Opioid Therapy greater than 6 weeks: N Opiate Contract Signed: 9. Risk Assessment Tool Provided: LOW RISK 0/3 10. Functional Assessment Tool: 11. Recreational Drug Use: Never Drug Type: Tobacco Use: Never Smoker Tobacco Type: Amount or Packs/day: How Many Years: Alcohol Use: Yes Frequency: Quant:
== END ==
LOC: PAIN 06:54
PROVIDERS: ATTEND Anesthesiology Pain Medicine
DX: M54.16 Radiculopathy, lumbar region (principal); G89.29 Other chronic pain; M48.061 Spinal stenosis, lumbar region without neurogenic claudication; M19.90 Unspecified osteoarthritis, unspecified site; Z79.899 Other long term (current) drug therapy; Z72.89 Other problems related to lifestyle

== ENCOUNTER → 2020-08-07 | Outpatient (CLI) | payer OTHER, MEDICARE ==
[~2020-08-07] VITALS: Ht 170.2 cm; Wt 67.1 kg
[2020-08-07 14:09] VITALS: BP 161/88
--- NOTE | 2020-08-07 14:34 | NUR ---
Pain Clinic Assessment: 1. History of Osteoarthritis: KNEES BACK HANDS History of Rheumatoid Arthritis: Not Applicable 2. Height: 5 ft. 7 in. 170.2 cm. Weight: 148.0 lb. oz. 67.132 kg. Patient's BMI: 23.2 3. Vital Signs: BP: 161/88 Pulse: 77 Resp: 20 Temp: 02 Sat: 97 ECG Mon: 4. Pain Intensity: 5-8 5. Fall Risk: Dizziness: N Needs help standing or walking: Y Fallen in the last 3 months: N Fall risk comments: tripped over threshhold,she had both arms full of groceries fell forward landing on both knees 6. Patient on Blood Thinner: Warfarin (Coumadin) 7. History of Hypertension: Y 8. Opioid Therapy greater than 6 weeks: N Opiate Contract Signed: 9. Risk Assessment Tool Provided: LOW RISK 0/3 10. Functional Assessment Tool: 11. Recreational Drug Use: Never Drug Type: Tobacco Use: Never Smoker Tobacco Type: Amount or Packs/day: How Many Years: Alcohol Use: Yes Frequency: Quant:
== END | disposition home or self-care (01) ==
LOC: PAIN 06:48
PROVIDERS: ATTEND Anesthesiology Pain Medicine
DX: M17.0 Bilateral primary osteoarthritis of knee (principal); G89.29 Other chronic pain; M25.561 Pain in right knee; M25.562 Pain in left knee; I10 Essential (primary) hypertension; M19.90 Unspecified osteoarthritis, unspecified site; Z98.890 Other specified postprocedural states; Z79.899 Other long term (current) drug therapy; Z79.01 Long term (current) use of anticoagulants; Z88.8 Allergy status to other drugs, medicaments and biological substances

== ENCOUNTER → 2020-10-23 | Outpatient (CLI) | payer OTHER, MEDICARE ==
[~2020-10-23] VITALS: Ht 170.2 cm; Wt 67.9 kg
[~2020-10-23] MED LIST changes: +XARELTO20 MG PO
[2020-10-23 14:57] VITALS: BP 142/94
== END ==
LOC: PAIN 06:57
PROVIDERS: ATTEND Anesthesiology Pain Medicine
DX: M17.0 Bilateral primary osteoarthritis of knee (principal); M54.17 Radiculopathy, lumbosacral region; G62.9 Polyneuropathy, unspecified; Z88.8 Allergy status to other drugs, medicaments and biological substances; Z79.899 Other long term (current) drug therapy

== ENCOUNTER → 2020-11-17 | Outpatient (CLI) | payer OTHER, MEDICARE ==
[~2020-11-17] VITALS: Ht 170.2 cm; Wt 67.6 kg
[2020-11-17 13:14] VITALS: BP 170/98
--- NOTE | 2020-11-17 13:18 | NUR ---
Pain Clinic Assessment: 1. History of Osteoarthritis: KNEES BACK HANDS History of Rheumatoid Arthritis: Not Applicable 2. Height: 5 ft. 7 in. 170.2 cm. Weight: 149.0 lb. oz. 67.586 kg. Patient's BMI: 23.3 3. Vital Signs: BP: 170/98 Pulse: 75 Resp: 15 Temp: 02 Sat: 97 ECG Mon: 4. Pain Intensity: 8 5. Fall Risk: Dizziness: N Needs help standing or walking: Y Fallen in the last 3 months: N Fall risk comments: USES CANE 6. Patient on Blood Thinner: XARELTO 7. History of Hypertension: Y 8. Opioid Therapy greater than 6 weeks: N Opiate Contract Signed: 9. Risk Assessment Tool Provided: LOW RISK 0/3 10. Functional Assessment Tool: 11. Recreational Drug Use: Never Drug Type: Tobacco Use: Never Smoker Tobacco Type: Amount or Packs/day: How Many Years: Alcohol Use: Yes Frequency: Daily Quant:
== END | disposition home or self-care (01) ==
LOC: PAIN 09:30
PROVIDERS: ATTEND Anesthesiology Pain Medicine
DX: M54.16 Radiculopathy, lumbar region (principal); M48.061 Spinal stenosis, lumbar region without neurogenic claudication; M19.90 Unspecified osteoarthritis, unspecified site; Z98.890 Other specified postprocedural states; Z79.899 Other long term (current) drug therapy; Z88.8 Allergy status to other drugs, medicaments and biological substances

== ENCOUNTER → 2021-02-12 | Outpatient (CLI) | payer OTHER, MEDICARE ==
[~2021-02-12] VITALS: Ht 170.2 cm; Wt 65.0 kg
[2021-02-12 13:54] VITALS: BP 179/97
--- NOTE | 2021-02-12 14:08 | NUR ---
Pain Clinic Assessment: 1. History of Osteoarthritis: KNEES BACK HANDS History of Rheumatoid Arthritis: Not Applicable 2. Height: 5 ft. 7 in. 170.2 cm. Weight: 143.2 lb. oz. 64.955 kg. Patient's BMI: 22.4 3. Vital Signs: BP: 179/97 Pulse: 79 Resp: 20 Temp: 02 Sat: 97 ECG Mon: 4. Pain Intensity: 9 5. Fall Risk: Dizziness: N Needs help standing or walking: Y Fallen in the last 3 months: N Fall risk comments: USES CANE 6. Patient on Blood Thinner: XARELTO 7. History of Hypertension: Y 8. Opioid Therapy greater than 6 weeks: N Opiate Contract Signed: 9. Risk Assessment Tool Provided: LOW RISK 0/3 10. Functional Assessment Tool: 11. Recreational Drug Use: Never Drug Type: Tobacco Use: Never Smoker Tobacco Type: Amount or Packs/day: How Many Years: Alcohol Use: Yes Frequency: Daily Quant: 1
== END | disposition home or self-care (01) ==
LOC: PAIN 10:46
PROVIDERS: ATTEND Anesthesiology Pain Medicine
DX: M47.26 Other spondylosis with radiculopathy, lumbar region (principal); G89.29 Other chronic pain; M19.90 Unspecified osteoarthritis, unspecified site; Z98.890 Other specified postprocedural states; Z79.899 Other long term (current) drug therapy; Z79.01 Long term (current) use of anticoagulants; Z88.8 Allergy status to other drugs, medicaments and biological substances

== ENCOUNTER → 2021-06-11 | Outpatient (CLI) | payer OTHER, MEDICARE ==
[~2021-06-11] VITALS: Ht 170.2 cm; Wt 65.1 kg
[2021-06-11 13:56] VITALS: BP 178/93
--- NOTE | 2021-06-11 14:09 | NUR ---
Pain Clinic Assessment: 1. History of Osteoarthritis: KNEES BACK HANDS History of Rheumatoid Arthritis: Not Applicable 2. Height: 5 ft. 7 in. 170.2 cm. Weight: 143.6 lb. oz. 65.136 kg. Patient's BMI: 22.5 3. Vital Signs: BP: 178/93 Pulse: 70 Resp: 20 Temp: 02 Sat: 100 ECG Mon: 4. Pain Intensity: 7-8 5. Fall Risk: Dizziness: N Needs help standing or walking: Y Fallen in the last 3 months: N Fall risk comments: USES CANE 6. Patient on Blood Thinner: XARELTO 7. History of Hypertension: Y 8. Opioid Therapy greater than 6 weeks: N Opiate Contract Signed: 9. Risk Assessment Tool Provided: LOW RISK 0/3 10. Functional Assessment Tool: 11. Recreational Drug Use: Never Drug Type: Tobacco Use: Never Smoker Tobacco Type: Amount or Packs/day: How Many Years: Alcohol Use: Yes Frequency: Quant:
== END | disposition home or self-care (01) ==
LOC: PAIN 10:50
PROVIDERS: ATTEND Anesthesiology Pain Medicine
DX: M25.561 Pain in right knee (principal); M25.562 Pain in left knee; M17.0 Bilateral primary osteoarthritis of knee; I10 Essential (primary) hypertension; M19.90 Unspecified osteoarthritis, unspecified site; Z98.890 Other specified postprocedural states; Z79.899 Other long term (current) drug therapy; Z79.01 Long term (current) use of anticoagulants; Z88.8 Allergy status to other drugs, medicaments and biological substances